=== PATIENT | male | born 1990 | race African-American/Black ===

== ENCOUNTER 2016-10-19 13:00 | Emergency (ER) | payer OTHER ==
[2016-10-19 13:51] LABS: ABSOLUTE EOSINOPHILS # (AUTO) 0.6 10^3/uL (0.0-0.6); ABSOLUTE LYMPHOCYTES (AUTO) 2.2 10^3/uL (0.5-4.7); ABSOLUTE NEUT (AUTO) 3.1 10^3/uL (1.7-8.2); BASOPHILS % (AUTO) 0.7 % (0-2); EOSINOPHILS % (AUTO) 8.7 % (0-6); HEMATOCRIT 42.1 % (37.9-51.0); HGB HCT DIFFERENCE -0.1; LYMPHOCYTES % (AUTO) 31.9 % (13-45); MEAN CORPUSCULAR HEMOGLOBIN 27.1 pg (27.0-33.4); MEAN CORPUSCULAR HGB CONC 33.4 g/dL (32.0-36.0); MEAN CORPUSCULAR VOLUME 81 fl (80-97); MONOCYTES % (AUTO) 14.4 % (3-13); RED BLOOD COUNT 5.18 10^6/uL (4.35-5.55); RED CELL DISTRIBUTION WIDTH 12.8 % (11.5-14.0); SEGMENTED NEUTROPHILS % (AUTO) 44.3 % (42-78)
[2016-10-19 14:09] LABS: ALANINE AMINOTRANSFERASE 42 U/L (21-72); ALBUMIN 4.9 g/dL (3.5-5.0); ALKALINE PHOSPHATASE 66 U/L (38-126); ANION GAP 14 (5-19); ASPARTATE AMINO TRANSFERASE 37 U/L (17-59); BILIRUBIN,DIRECT 0.2 mg/dL (0.0-0.4); BLOOD UREA NITROGEN 16 mg/dL (7-20); CALCIUM 10.1 mg/dL (8.4-10.2); CARBON DIOXIDE 25 mmol/L (22-30); CHLORIDE 104 mmol/L (98-107); CREATININE RESULT 1.15 mg/dL (0.52-1.25); GLUCOSE 90 mg/dL (75-110); POTASSIUM 4.4 mmol/L (3.6-5.0); SODIUM 142.6 mmol/L (137-145)
[2016-10-19 14:28] LABS: URINE BARBITURATES SCREEN NEGATIVE; URINE METHADONE SCREEN NEGATIVE; URINE OPIATES LOW NEGATIVE; URINE PHENCYCLIDINE SCREEN NEGATIVE
--- NOTE | 2016-10-19 15:12 | ER Document Report ---
ED General - General Chief Complaint: Psych Problem Stated Complaint: PSYCH EVAL Mode of Arrival: Ambulatory Information source: Patient Notes: 26-year-old male with past medical history of HIV currently not taking any medications secondary to noncompliance who presents today stating he has felt "excessively sleepy" over the last 2 weeks. Patient denies any headache, neck pain, nausea, vomiting, fevers, cough, congestion, chest pain, abdominal pain, flank pain, or dysuria. Patient states he does have pain to the top of his left foot that he's had for around 3 or 4 days without trauma. No pain to this foot region before. He denies any redness to the foot, calf pain or leg swelling. Patient states he drove himself here directly. Patient denies a history of any psychiatric disorders. Patient denies any and all HI/SI. Patient denies any history of suicidal ideations. TRAVEL OUTSIDE OF THE [place] IN LAST 30 DAYS: No - HPI Onset: Other Onset/Duration: Gradual - See above Quality of pain: Achy Severity: Mild Pain Level: 1 Associated symptoms: Other - See above Exacerbated by: Movement Relieved by: Denies Similar symptoms previously: No Recently seen / treated by doctor: No - Related Data Allergies/Adverse Reactions: No Known Allergies Allergy (Verified 10/19/16 13:02) Past Medical History - General Information source: Patient - Social History Smoking Status: Current Every Day Smoker Cigarette use (# per day): No Chew tobacco use (# tins/day): No Smoking Education Provided: No Frequency of alcohol use: None Drug Abuse: None Family History: Reviewed & Not Pertinent Patient has suicidal ideation: No Patient has homicidal ideation: No Endocrine Medical History: Denies: Hx Diabetes Mellitus Type 1, Hx Diabetes Mellitus Type 2 Renal/ Medical History: Denies: Hx Peritoneal Dialysis Surgical Hx: Negative - Immunizations Hx Diphtheria, Pertussis, Tetanus Vaccination: Yes Review of Systems - Review of Systems Constitutional: denies: Fever EENT: denies: Eye discharge, Nose discharge Cardiovascular: denies: Chest pain, Palpitations, Syncope, Dizziness, Lightheaded Respiratory: denies: Cough, Short of breath Gastrointestinal: denies: Diarrhea, Nausea, Vomiting Genitourinary: denies: Dysuria Musculoskeletal: denies: Leg swelling Skin: Other - no hives. denies: Rash Neurological/Psychological: Other - no slurred speech -: Yes All other systems reviewed and negative Physical Exam - Vital signs Vitals: Temp Pulse Resp BP Pulse Ox 98.5 F 95 18 153/99 H 100 10/19/16 13:04 10/19/16 13:04 10/19/16 13:04 10/19/16 13:04 10/19/16 13:04 Notes: Reviewed vital signs and nursing note as charted by RN. CONSTITUTIONAL: Patient was sleeping when and to the room. He was easily arousable. Patient is oriented to person, place, year, month, and location.. Well-appearing; well-nourished HEAD: Normocephalic; atraumatic EYES: PERRL ENT: Normal nose; no rhinorrhea; moist mucous membranes; pharynx without lesions noted NECK: Supple without meningismus; non-tender; no cervical lymphadenopathy, no masses CARD: Regular rate and rhythm; no murmurs, no clicks, no rubs, no gallops; symmetric distal pulses RESP: Normal chest excursion without splinting or tachypnea; breath sounds clear and equal bilaterally; no wheezes, no rhonchi, no rales ABD/GI: Normal bowel sounds; non-distended; soft, non-tender to deep palpation of all 4 quadrants of the abdomen BACK: The back appears normal and is non-tender to palpation, there is no CVA tenderness EXT: Normal ROM in all joints; he should has some mild tenderness without deformity, swelling, or erythema to the dorsal aspect of his left foot. Neurovascular intact distally. SKIN: Normal color for age and race; warm; dry; good turgor; capillary refill < 2 seconds; no acute lesions noted NEURO: CN II through XII are intact. Moves all extremities equally; Motor and sensory function intact PSYCH: No auditory visual hallucinations. Patient answers questions appropriately.. Course - Re-evaluation Re-evalutation: A psychiatry evaluation was ordered in triage secondary to his excessive sleepiness. Labs as recorded. Patient does admit to using cocaine. Patient has a cocaine positive urine drug screen. Labs otherwise unremarkable. Patient's white count with a differential does not appear to be concerning for an extremely low CD4 count. Patient has no history of a psychiatric evaluation here at this facility. Patient denies any SI, HI, auditory or visual hallucinations. He is oriented 4. I will x-ray the left foot. I've explained to the patient that psychostimulants such as cocaine when withdrawing from these substances, can cause excessive somnolence and sleepiness. 10/19/16 18:34 Patient has been evaluated by psychiatry who does not believe that the patient warrants any placement. Patient still has no focal logical deficits. Patient is still oriented 4. Patient agrees that stopping cocaine would be beneficial. Patient's thyroid levels are normal. Patient's alcohol level normal. Patient will be discharged home with strict return precautions. - Vital Signs Vital signs: Temp Pulse Resp BP Pulse Ox 98.5 F 95 18 153/99 H 100 10/19/16 13:04 10/19/16 13:04 10/19/16 13:04 10/19/16 13:04 10/19/16 13:04 - Laboratory Result Diagrams: 10/19/16 13:36 10/19/16 13:36 Laboratory results interpreted by me: 10/19/16 10/19/16 13:36 13:36 Monocytes % 14.4 H Eosinophils % 8.7 H Salicylates < 1.0 L Acetaminophen < 10 L Discharge - Discharge Clinical Impression: Cocaine abuse, Somnolence Condition: Stable Disposition: HOME, SELF-CARE Additional Instructions: Cocaine Abuse Cocaine causes many dangerous medical problems. Problems can occur even with "usual" amounts. Cocaine affects judgement, creating a sense of invulnerability. Cocaine users often make bad decisions that seem "great" at the time. Most cocaine users eventually will be hurt by bad job performance, damaged personal relations, crime, and unsafe sexual practices. Toxic effects of cocaine can include seizures, hallucinations, delusions, high blood pressure, heart damage, or sudden . There's always the risk of a "bad batch." But heart attacks, brain hemorrhages, or cardiac arrest can occur unpredictably even with "normal" use. Injection of cocaine is risky for abscesses, endocarditis (heart infection) , pneumonia, and AIDS. Withdrawal from cocaine often causes anxiety and drug cravings. Some users become paranoid and psychotic. Many treatment programs are available, but you must make the decision to quit. Medication can be prescribed to control the symptoms of cocaine toxicity (beta blockers or benzodiazepines). Withdrawal symptoms may require tranquilizers. Please follow up with you [facility] provider for a substance abuse evaluation and it is recommended you abstain from the use of illicit drugs. You have a scheduled appointment with the [facility] for 11/06/2016, please make every effort to attend this appointment. You are recommended to continue taking your medications as prescribed. If your symptoms worsen, please return to the emergency department. You may also contact [place] crisis at [phone] or [place] [facility] at . Addition resources for substance abuse treatment was provided by the Behavioral Health Team. Referrals: [facility] [Provider Group] - Follow up as needed
[2016-10-19 15:20] LABS: ADD ON TESTING BLD IN LAB ACKNOWLEDGE
[2016-10-19 15:52] LABS: ALCOHOL < 10 mg/dL (NONE DETECTED)
--- NOTE | 2016-10-19 16:19 | PSYCHOLOGICAL NOTE ---
Psych Note - Psych Note Psych Note: pt ambulatory to er with need for psych evaluation; he states "cant explain it. " Patient states he has not taken is medication his medication in 3 or 4 months; Clinician notes he states to [facility] staff he had been off his medication for 3 weeks. He continued to disclose that he is concerned that he is sleeping too much. He states he sleep on weekends, as soon as he gets home from work, and even at work. He continued to disclose concerns that he has missed work because of his sleeping. The patient states that he receives medical care from the [facility] and denies mental health services. He continued to state that feels like he is in a dream and not realizing what's going on. Patient presents as under the influence of cocaine as evidenced by positive toxicology results and disorganized thought processes, dilated pupils, psychomotor restlessness. Thought processes are not focused. Conversational speech is tangential. Patient denies suicidal and homicidal ideation. Patient denies auditory and visual hallucinations; no delusions are noted. Eye contact is poor. Attention and concentration are poor. insight, judgement and impulse control are poor. 292.89 (F15.129) Stimulant Intoxication; Cocaine, without perceptual disturbances, mild Impression\\plan: Patient is psychiatrically cleared for discharge. Patient denies suicidal and homicidal ideation. Patient does not meet IVC criteria per [place] GS 122C. Please follow up with you [facility] provider for a substance abuse evaluation and it is recommended you abstain from the use of illicit drugs. [facility] a [facility], please make every effort to attend this appointment. You are recommended to continue taking your medications as prescribed. If your symptoms worsen, please return to the emergency department. You may also contact [place] crisis at [phone] or [place] crisis at . Addition resources for substance abuse treatment was provided by the Behavioral Health Team. Dr. Rosenbaum was consulted on the care and management of this patient; attending physician is in agreement with recommendations and disposition.
--- NOTE | 2016-10-19 16:19 | ER Document Report ---
ED Psych Disorder / Suicide - General Time seen by provider: 14:30 Mode of Arrival: Ambulatory Information source: Patient Cannot obtain history due to: Other - Patient presents as under the influence of cocaine as evidenced by positive toxicology results and disorganized thought processes, dilated pupils, psychomotor restlessness. TRAVEL OUTSIDE OF THE [place] IN LAST 30 DAYS: No - HPI Patient complains to provider of: Other - Hypersomnia Onset: Other - "months and months" Onset was: Cannot confirm Pain Level: 3 Suicide Risk Factors: Male, No spouse, Substance abuse Normal mood: No - not focused Associated symptoms: Excessive sleeping, Psychomotor agitation, Tangential speech Similar symptoms previously: No Recently seen / treated by doctor: No <LISA AKHTAR - Last Filed: 10/19/16 16:19> <JOHN TOLBERT - Last Filed: 10/19/16 18:39> - General Chief Complaint: Psych Problem Stated Complaint: PSYCH EVAL - Related Data Allergies/Adverse Reactions: No Known Allergies Allergy (Verified 10/19/16 13:02) Past Medical History - Social History Smoking Status: Current Every Day Smoker Frequency of alcohol use: None Drug Abuse: Cocaine Lives with: Spouse/Significant other Family History: Reviewed & Not Pertinent Patient has suicidal ideation: No Patient has homicidal ideation: No Endocrine Medical History: Denies: Hx Diabetes Mellitus Type 1, Hx Diabetes Mellitus Type 2 Renal/ Medical History: Denies: Hx Peritoneal Dialysis Surgical Hx: Negative - Immunizations Hx Diphtheria, Pertussis, Tetanus Vaccination: Yes <LISA AKHTAR - Last Filed: 10/19/16 16:19> Physical Exam - Psychological Associated symptoms: Excessive sleeping, Psychomotor agitation, Tangential speech <LISA AKHTAR - Last Filed: 10/19/16 16:19> - Vital signs Interpretation: Normal <JOHN TOLBERT - Last Filed: 10/19/16 18:39> - Vital signs Vitals: Temp Pulse Resp BP Pulse Ox 98.5 F 95 18 153/99 H 100 10/19/16 13:04 10/19/16 13:04 10/19/16 13:04 10/19/16 13:04 10/19/16 13:04 Course - Laboratory Result Diagrams: 10/19/16 13:36 10/19/16 13:36 <LISA AKHTAR - Last Filed: 04/01/17 16:19> - Laboratory Result Diagrams: 10/19/16 13:36 10/19/16 13:36 <JOHN TOLBERT - Last Filed: 10/19/16 18:39> - Re-evaluation Re-evalutation: 10/19/16 18:39 (JOHN TOLBERT) - Vital Signs Vital signs: Temp Pulse Resp BP Pulse Ox 98.5 F 95 18 153/99 H 100 10/19/16 13:04 10/19/16 13:04 10/19/16 13:04 10/19/16 13:04 10/19/16 13:04 - Laboratory Laboratory results interpreted by me: 10/19/16 10/19/16 13:36 13:36 Monocytes % 14.4 H Eosinophils % 8.7 H Salicylates < 1.0 L Acetaminophen < 10 L Discharge <LISA AKHTAR - Last Filed: 10/19/16 16:19> <JOHN TOLBERT - Last Filed: 10/19/16 18:39> - Discharge Clinical Impression: Cocaine abuse, Somnolence Condition: Stable Disposition: HOME, SELF-CARE Additional Instructions: Cocaine Abuse Cocaine causes many dangerous medical problems. Problems can occur even with "usual" amounts. Cocaine affects judgement, creating a sense of invulnerability. Cocaine users often make bad decisions that seem "great" at the time. Most cocaine users eventually will be hurt by bad job performance, damaged personal relations, crime, and unsafe sexual practices. Toxic effects of cocaine can include seizures, hallucinations, delusions, high blood pressure, heart damage, or sudden . There's always the risk of a "bad batch." But heart attacks, brain hemorrhages, or cardiac arrest can occur unpredictably even with "normal" use. Injection of cocaine is risky for abscesses, endocarditis (heart infection) , pneumonia, and AIDS. Withdrawal from cocaine often causes anxiety and drug cravings. Some users become paranoid and psychotic. Many treatment programs are available, but you must make the decision to quit. Medication can be prescribed to control the symptoms of cocaine toxicity (beta blockers or benzodiazepines). Withdrawal symptoms may require tranquilizers. Please follow up with you [facility] provider for a substance abuse evaluation and it is recommended you abstain from the use of illicit drugs. You have a [facility] with the [facility] for [facility]2016, please make every effort to attend this appointment. You are recommended to continue taking your medications as prescribed. If your symptoms worsen, please return to the emergency department. You may also contact [place] crisis at [phone] or [place] crisis at . Addition resources for substance abuse treatment was provided by the Behavioral Health Team. Referrals: [facility] [Provider Group] - Follow up as needed
[2016-10-19 19:00] VITALS: BP 104/55
--- NOTE | 2016-10-20 00:11 | EKG REPORT ---
SEVERITY:- BORDERLINE ECG - SINUS RHYTHM BORDERLINE T ABNORMALITIES, ANT-LAT LEADS : Confirmed by: Harry Ashton 20-Oct-2016 00:11:03
== END 2016-10-19 19:00 | disposition home or self-care (01) ==
LOC: ER 13:00
DX: F14.10 Cocaine abuse, uncomplicated (principal); R40.0 Somnolence; M79.672 Pain in left foot; F17.200 Nicotine dependence, unspecified, uncomplicated; Z21 Asymptomatic human immunodeficiency virus [HIV] infection status; Z91.14 Patient's other noncompliance with medication regimen
CPT/HCPCS: 36415; 80053; 80307; 84443; 85025; 93005; 93010; 99284

== ENCOUNTER 2017-03-29 00:18 | Emergency (ER) | payer OTHER ==
[2017-03-29] MEDS ORDERED: LORAZEPAM INJ 2 MG/1 ML VIAL IV ONE (00:26)
[2017-03-29] MEDS ORDERED: NORMAL SALINE 1000 ML 1,000 ML IV PRN (00:27)
[2017-03-29 00:37] LABS: ABSOLUTE BASOPHILS # (AUTO) 0.1 10^3/uL (0.0-0.2); ABSOLUTE EOSINOPHILS # (AUTO) 0.4 10^3/uL (0.0-0.6); ABSOLUTE LYMPHOCYTES (AUTO) 4.3 10^3/uL (0.5-4.7); ABSOLUTE MONOCYTES (AUTO) 0.9 10^3/uL (0.1-1.4); ABSOLUTE NEUT (AUTO) 2.4 10^3/uL (1.7-8.2); EOSINOPHILS % (AUTO) 5.3 % (0-6); HEMATOCRIT 41.5 % (37.9-51.0); HEMOGLOBIN 13.5 g/dL (13.5-17.0); MEAN CORPUSCULAR HEMOGLOBIN 27.6 pg (27.0-33.4); MEAN CORPUSCULAR HGB CONC 32.5 g/dL (32.0-36.0); MEAN CORPUSCULAR VOLUME 85 fl (80-97); MONOCYTES % (AUTO) 11.1 % (3-13); RED BLOOD COUNT 4.89 10^6/uL (4.35-5.55); RED CELL DISTRIBUTION WIDTH 13.3 % (11.5-14.0); SEGMENTED NEUTROPHILS % (AUTO) 29.6 % (42-78); WHITE BLOOD COUNT 8.1 10^3/uL (4.0-10.5)
[2017-03-29 00:58] LABS: ALANINE AMINOTRANSFERASE 20 U/L (21-72); ALBUMIN 4.7 g/dL (3.5-5.0); ALKALINE PHOSPHATASE 59 U/L (38-126); ASPARTATE AMINO TRANSFERASE 24 U/L (17-59); BILIRUBIN,DIRECT 0.3 mg/dL (0.0-0.4); BILIRUBIN,TOTAL 0.4 mg/dL (0.2-1.3); BLOOD UREA NITROGEN 12 mg/dL (7-20); CALCIUM 9.6 mg/dL (8.4-10.2); CHLORIDE 102 mmol/L (98-107); CREATININE RESULT 1.48 mg/dL (0.52-1.25); GLUCOSE 154 mg/dL (75-110); POTASSIUM 3.8 mmol/L (3.6-5.0); TOTAL PROTEIN 8.1 g/dL (6.3-8.2)
[2017-03-29] MEDS ORDERED: ZIPRASIDONE MESYLATE INJ/PF 20 MG SDV IM ONE (01:05)
[2017-03-29 01:06] LABS: ALCOHOL < 10 mg/dL (NONE DETECTED)
[2017-03-29] MEDS ORDERED: LORAZEPAM INJ 2 MG/1 ML VIAL ONE (01:06)
[2017-03-29 01:13] LABS: CARBON DIOXIDE 16 mmol/L (22-30); SODIUM 141.7 mmol/L (137-145)
[2017-03-29 01:14] LABS: ANION GAP 24 (5-19)
[2017-03-29] MEDS ORDERED: LORAZEPAM INJ 2 MG/1 ML VIAL IM ONE (02:05)
--- NOTE | 2017-03-29 02:48 | ER Document Report ---
ED General - General Chief Complaint: Altered Mental Status Stated Complaint: UNRESPONSIVE Time Seen by Provider: 03/29/17 00:25 Notes: Patient is a 26-year-old male who is brought in by ambulance after being confused. Patient apparently went someone's hotel room and start flopping around on the floor. Paramedics arrived he was poorly responsive but then started to wake and was agitated. History is not very obtainable as the patient appears to be under the influence of some drug and is not making less sense when he talks. When I was in the room with another patient apparently family arrived and told the nurses that the patient has a history of HIV and does not take medications. He also has a history of cocaine and drug abuse. No further history is obtainable at this time. TRAVEL OUTSIDE OF THE [place] IN LAST 30 DAYS: No - Related Data Allergies/Adverse Reactions: No Known Allergies Allergy (Verified 10/19/16 13:02) Past Medical History - Social History Smoking Status: Unknown if Ever Smoked Frequency of alcohol use: unknown Drug Abuse: Cocaine Family History: Reviewed & Not Pertinent Endocrine Medical History: Denies: Hx Diabetes Mellitus Type 1, Hx Diabetes Mellitus Type 2 Renal/ Medical History: Denies: Hx Peritoneal Dialysis - Immunizations Hx Diphtheria, Pertussis, Tetanus Vaccination: Yes Review of Systems - Review of Systems -: Yes ROS unobtainable due to patient's medical condition - Patient has altered mental status. Physical Exam - Vital signs Vitals: Pulse Ox 96 03/29/17 00:20 - Notes Notes: General Appearance: Well nourished, patient will not stay still in the bed. His eyes are open. He is faliling about opening his mouth or sticking out his tongue., He is awake and alert but obviously confused. Vitals: reviewed, See vital signs table. Head: no swelling or tenderness to the head Eyes: PERRL, EOMI, Conjuctiva clear Mouth: No decreasd moisturehroat: No tonsillar inflammation, No airway obstruction, No lymphadenopathy Lungs: No wheezing, No rales, No rhonci, No accessory muscle use, good air exchange bilaterally. Heart: Normal rate, Regular rythm, No murmur, no rub Abdomen: Normal BS, soft, No rigidity, No abdominal tenderness, No guarding, no rebound, no abdominal masses, no organomegaly Extremities: strength 5/5 in all extremities, good pulses in all extremities, no swelling or tenderness in the extremities, no edema. Skin: warm, dry, appropriate color, no rash Neuro: Patient will occasionally come down enough to talk to me a little bit but when he does talk he blames a nurse for "putting something in my IV". He says that the nurse is the reason why he is acting the way he is. I informed him that the nurse only flushes IV was saline and that he was acting this way well before the nurse ever saw him. Patient moves all extremities very well. He is strong and somewhat combative at times. Course - Re-evaluation Re-evalutation: 03/29/17 06:38 Shortly after arrived the patient was becoming more agitated the patient was trying to leave. I was at that time taking care of a patient who had a open fracture in the foot. The physician was here and therefore recommend the patient receive Geodon. Patient did receive 20 mg of Geodon. Since and the patient has been sleeping resting comfortably. Patient's initial presentation is very consistent with that of intoxication with cocaine or possibly a synthetic drug such as bath salts or flakka. Patient does have a history of HIV and does not take his medications according to report from family; however, I do not suspect that this is infectious induced pain at the patient has no fevers, no leukocytosis, and the fact that his presentation initially is very consistent with intoxication from drugs. Patient will be reassessed by the morning physician when the Geodon wears off and he is awake alert and acting more appropriately. The patient is acting appropriately and feeling improved and has no further concerns and he will be discharged at that time with resources for drug rehabilitation. Dictation of this chart was performed using voice recognition software; therefore, there may be some unintended grammatical errors. 03/29/17 08:03 Stable my evaluation the patient for leaving. Patient is now starting to wake up much more. Is able to mumble answers to a few questions but is still too somnolent to leave at this time. Patient will be reassessed by Dr. Penaloza later. - Vital Signs Vital signs: Temp Pulse Resp BP Pulse Ox 83 12 90/63 L 99 03/29/17 03:51 03/29/17 07:01 03/29/17 07:01 03/29/17 07:01 - Laboratory Result Diagrams: 03/29/17 00:19 03/29/17 00:19 Laboratory results interpreted by me: 03/29/17 03/29/17 03/29/17 00:19 00:19 03:31 Seg Neutrophils % 29.6 L Lymphocytes % 53.0 H Carbon Dioxide 16 L Anion Gap 24 H Creatinine 1.48 H Est GFR (Non-Af Amer) 58 L Glucose 154 H ALT 20 L Urine Protein 100 H Urine Ascorbic Acid 40 H Salicylates < 1.0 L Acetaminophen < 10 L - EKG Interpretation by Me Additional EKG results interpreted by me: 03/29/17 04:12 EKG is reviewed and interpreted by me. EKG shows normal sinus rhythm with rate of [address] segment elevation or depression. No ischemic T-wave inversions. OH interval, QRS duration, QTc intervals are within normal range. Old EKG for comparison is from October 19, 2016. Discharge - Discharge Clinical Impression: Substance abuse Additional Instructions: Please take your HIV medications. Please stop abusing drugs. Your drug screen showed cocaine. Continued use of this will lead to your . Return to the ER immediately if you have fevers, or feel unwell. Please follow-up with drug rehabilitation. Please stay away from cocaine or any other illegal drugs. Please return to the ER if you have any concerns whatsoever.
--- NOTE | 2017-03-29 03:42 | RADIOLOGY REPORT (SQ) ---
EXAM DESCRIPTION: CT HEAD WITHOUT COMPLETED DATE/TIME: 03/29/2017 3:22 am REASON FOR STUDY: altered mental status COMPARISON: None. TECHNIQUE: Axial images acquired through the brain without intravenous contrast. Images reviewed wi th bone, brain and subdural windows. Images stored on PACS. All CT scanners at this facility use dose modulation, iterative reconstruction, and/or weight based d osing when appropriate to reduce radiation dose to as low as reasonably achievable (ALARA). [facility]: Dose Right [facility]: CareDose [facility]: Dose Right [facility]: Teradose 4D [facility]: Smart Technologies RADIATION DOSE: Up-to-date CT equipment and radiation dose reduction techniques were employed. CTDIv ol: 64.6 mGy. DLP: 1163 mGy-cm. mGy. LIMITATIONS: None. FINDINGS: VENTRICLES: Normal size and contour. CEREBRUM: No mass effect. No hemorrhage. No midline shift. Normal cordova/white matter differentiatio n. No evidence for acute territorial infarction. CEREBELLUM: No mass effect. No hemorrhage. No alteration of density. No evidence for acute infarct ion. EXTRAAXIAL SPACES: No fluid collections. ORBITS AND GLOBE: Symmetrical contour of the globes. CALVARIUM: No depressed skull fracture. PARANASAL SINUSES: No air-fluid level. SOFT TISSUES: No hematoma. IMPRESSION: No acute intracranial hemorrhage or acute territorial infarct. COMMENT: Quality ID # [id number]: Final reports with documentation of one or more dose reduction techniques (e.g., Automated exposure control, adjustment of the mA and/or kV according to patient size, use of iterative reconstruction technique) TECHNICAL DOCUMENTATION: JOB ID: [id number] 2010 [employer]- All Rights Reserved
[2017-03-29 03:49] LABS: AMORPHOUS SEDIMENT,URINE TRACE /HPF; APPEARANCE,URINE CLOUDY; BILIRUBIN,URINE NEGATIVE (NEGATIVE); GLUCOSE, URINE NEGATIVE (NEGATIVE); KETONES,URINE NEGATIVE (NEGATIVE); LEUKOCYTE ESTERASE,URINE NEGATIVE (NEGATIVE); NITRITE,URINE NEGATIVE (NEGATIVE); PROTEIN,URINE 100 mg/dL (NEGATIVE); URINE SPECIFIC GRAVITY 1.026; UROBILINOGEN,URINE NEGATIVE mg/dL (<2.0)
[2017-03-29 04:05] LABS: URINE BARBITURATES SCREEN NEGATIVE; URINE METHADONE SCREEN NEGATIVE; URINE OPIATES LOW NEGATIVE; URINE PHENCYCLIDINE SCREEN NEGATIVE
[2017-03-29] MEDS ORDERED: AMMONIA INHALANTS 10 AMPUL/BOX IH ONE (04:35)
--- NOTE | 2017-03-29 06:51 | EKG REPORT ---
SEVERITY:- ABNORMAL ECG - SINUS RHYTHM INCOMPLETE RIGHT BUNDLE BRANCH BLOCK NEW COVING ST ELEVATION IN ANTERIOR PRECORDIAL LEADS V3-V6 IS ABNORMAL, CLINICAL CORRELATION , SERIAL EKG AND TROP. I NEEDED TO DETERMINE SIGNIFICANCE. : Confirmed by: Oscar Sosa MD 29-Mar-2017 06:51:06
[2017-03-29 11:52] VITALS: BP 91/56
== END 2017-03-29 11:51 | disposition home or self-care (01) ==
LOC: ER 00:18
DX: R41.82 Altered mental status, unspecified (principal); F19.10 Other psychoactive substance abuse, uncomplicated; Z21 Asymptomatic human immunodeficiency virus [HIV] infection status
CPT/HCPCS: 93005; 99285; 96372; 51701; 96374; 36415; 80307 ×4; 85025; 80053; 81001; 70450; 93010; J2060; J3486; J7030

== ENCOUNTER 2017-04-18 21:45 | Emergency (ER) | payer OTHER ==
--- NOTE | 2017-04-18 23:36 | RADIOLOGY REPORT (SQ) ---
EXAM DESCRIPTION: FOREARM LEFT COMPLETED DATE/TIME: 04/18/2017 11:17 pm REASON FOR STUDY: LAC COMPARISON: None. NUMBER OF VIEWS: Two views. TECHNIQUE: Two radiographic images acquired of the left forearm, including elbow and wrist in at [address]ia st one projection. LIMITATIONS: None. FINDINGS: MINERALIZATION: Normal. BONES: No acute fracture. No worrisome bone lesions. SOFT TISSUES: No obvious swelling or foreign body. OTHER: No other significant finding. IMPRESSION: NEGATIVE STUDY OF THE LEFT FOREARM. NO RADIOGRAPHIC EVIDENCE OF ACUTE INJURY. TECHNICAL DOCUMENTATION: JOB ID: [id number] [employer]- All Rights Reserved
[2017-04-19] MEDS ORDERED: DIPH/PERTUSS(ACELL)/TETANUS VAC/PF 0.5 ML SYR (>=10YO) IM ONE (00:22)
[2017-04-19] MEDS ORDERED: LIDOCAINE 1% INJ (10 MG/ML) 10 ML MDV INJ ONE (00:22)
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
[2017-04-19] MEDS ORDERED: LIDOCAINE 1% INJ-PF (10 MG/ML) 30 ML SDV ONE (01:02)
[2017-04-19 01:54] VITALS: BP 114/69
== END 2017-04-19 02:00 | disposition home or self-care (01) ==
LOC: ER 21:45
PROC: 0HQEXZZ Repair Left Lower Arm Skin, External Approach (ICD-10-PCS; principal; 2017-04-18)
DX: S51.812A Laceration without foreign body of left forearm, initial encounter (principal); Y04.0XXA Assault by unarmed brawl or fight, initial encounter; F14.10 Cocaine abuse, uncomplicated; F17.200 Nicotine dependence, unspecified, uncomplicated; R00.0 Tachycardia, unspecified; Z23 Encounter for immunization
CPT/HCPCS: 90471; 90715; 99284

== ENCOUNTER 2017-04-29 20:19 | Emergency (ER) | payer OTHER ==
[2017-04-29] MEDS ORDERED: IPRATROPIUM/ALBUTEROL 0.5-2.5 MG/3 ML AMPUL NEB ONE (21:56)
[2017-04-29] MEDS ORDERED: ACETAMINOPHEN 325 MG TABLET PO ONE (21:57)
--- NOTE | 2017-04-29 22:01 | ER Document Report ---
HPI - HPI Pain Level: Denies Notes: Patient with a history of HIV comes to the ED for suture removal for 4 sutures that were placed in the left distal posterior forearm about 11 days ago. Patient states that he also began having a fever today and has been coughing with chest congestion over the last 4 days. He has not been taking any over-the -counter meds for symptoms. He still eating and drinking without any difficulties. Patient has not noticed any abscess or purulent discharge from the laceration site. Denies any drug allergies or other significant past medical history. Patient admits to smoking. Denies any headache, head injury, neck pain, URI, sore throat, chest pain, palpitations, syncope, shortness of breath, dyspnea, abdominal pain, nausea/vomiting/diarrhea, urinary retention, dysuria, hematuria, loss of control of bowel or bladder, numbness/tingling, muscle paralysis/weakness, or rash. - ROS Notes: REVIEW OF SYSTEMS: CONSTITUTIONAL : see hpi EENT: Denies eye, ear, throat, or mouth pain or symptoms. Denies nasal or sinus congestion or discharge. Denies throat, tongue, or mouth swelling or difficulty swallowing. CARDIOVASCULAR: Denies chest pain. Denies palpitations or racing or irregular heart beat. Denies ankle edema. RESPIRATORY: see hpi GASTROINTESTINAL: Denies abdominal pain or distention. Denies nausea, vomiting , or diarrhea. Denies blood in vomitus, stools, or per rectum. Denies black, tarry stools. Denies constipation. GENITOURINARY: Denies difficulty urinating, painful urination, burning, frequency, blood in urine, or discharge. MUSCULOSKELETAL: Denies back or neck pain or stiffness. Denies joint pain or swelling. SKIN: see hpi NEUROLOGICAL: Denies confusion or altered mental status. Denies passing out or loss of consciousness. Denies dizziness or lightheadedness. Denies headache. Denies weakness or paralysis or loss of use of either side. Denies problems with gait or speech. Denies sensory loss, numbness, or tingling. Denies seizures. PSYCHIATRIC: Denies anxiety or stress. Denies depression, suicidal ideation, or homicidal ideation. ALL OTHER SYSTEMS REVIEWED AND NEGATIVE. Dictation was performed using [employer] voice recognition software - DERM Skin Color: Normal Past Medical History - Social History Smoking Status: Current Every Day Smoker Family History: Reviewed & Not Pertinent Patient has suicidal ideation: No Patient has homicidal ideation: No Endocrine Medical History: Denies: Hx Diabetes Mellitus Type 1, Hx Diabetes Mellitus Type 2 Renal/ Medical History: Denies: Hx Peritoneal Dialysis Psychiatric Medical History: Reports: Hx Depression - Immunizations Hx Diphtheria, Pertussis, Tetanus Vaccination: Yes Vertical Provider Document - CONSTITUTIONAL Agree With Documented VS: Yes Notes: PHYSICAL EXAMINATION: GENERAL: Well-appearing, well-nourished and in no acute distress. A&Ox4 HEAD: Atraumatic, normocephalic. EYES: Pupils equal round and reactive to light, extraocular movements intact, sclera anicteric, conjunctiva are normal. ENT: EAC clear b/l. TM's intact b/l without erythema, fluid, or perforation. Nares patent and without discharge. oropharynx clear without exudates. No tonsilar hypertrophy or erythema. Moist mucous membranes. No sinus tenderness. NECK: Normal range of motion, supple without lymphadenopathy. No rigidity/ meningismus. LUNGS: Wheezes b/l on insp/expiration. HEART: Regular rate and rhythm without murmurs, rubs, gallops. Musculoskeletal: FROM to passive/active. Strength 5+/5. Extremities: No cyanosis, clubbing, or edema b/l. Peripheral pulses 2+. Capillary refill less than 3 seconds. NEUROLOGICAL: Cranial nerves grossly intact. Normal speech, normal gait. Normal sensory, motor exams PSYCH: Normal mood, normal affect. SKIN: healed laceration to left posterior distal forearm. Suture to be removed. - INFECTION CONTROL TRAVEL OUTSIDE OF THE [place] IN LAST 30 DAYS: No - RESPIRATORY O2 Sat by Pulse Oximetry: 100 Course - Re-evaluation Re-evalutation: 04/29/17 22:55 Pt is a well-hydrated, 26yo male with HIV who presents with a fever, cough, and for suture removal. Vitals are otherwise stable. Sutures removed successfully w/o complication of signs of infection. CXR unremarkable. Duoneb given which did improve patient's breathing and breath sounds. Low suspicion for any ACS, PE, Pneumothorax, dissection, pericarditis, sepsis, meningitis, respiratory compromise. Pt is aware that his condition can change from initial presentation and he needs to monitor sx's closely and seek medical attention with any acute changes. Decadron given IM today. I will send him home with a Rx for zithromax and an inhaler. Conservative measures for symptoms. Recheck with your PCM in 2-3 days. Return to the ED with any worsening/concerning symptoms otherwise as reviewed in discharge. Pt is in agreement. - Vital Signs Vital signs: Temp Pulse Resp BP Pulse Ox 101.0 F H 100 18 120/70 100 04/29/17 20:45 04/29/17 20:45 04/29/17 20:45 04/29/17 20:45 04/29/17 20:45 Discharge - Discharge Clinical Impression: Cough, Visit for suture removal Fever Qualifiers: Fever type: unspecified Qualified Code(s): R50.9 - Fever, unspecified Condition: Stable Disposition: HOME, SELF-CARE Instructions: Bronchitis With Bronchospasm (Wheezing) ([facility]), Fever ([facility]), Inhaled Bronchodilators ([facility]) Additional Instructions: Maintain adequate fluid intake Take meds as directed Use inhaler as directed tylenol/ibuprofen as needed over the counter cold medication as needed for symptoms Humidified air may help F/u: with your PCM in 2-3 days for a recheck Return to the ED with any fever, worsening pain, chest pain, palpitations, syncope, worsening HAAS, neck pain/stiffness, shortness of breath, wheezing, drooling, trouble swallowing/breathing, abdominal pain, n/v/d, rash, or worsening/concerning symptoms otherwise. Prescriptions: Albuterol Sulfate [Proair HFA Inhalation Aerosol 8.5 gm MDI] 1 - 2 puff IH Q4H PRN #1 mdi PRN Reason: Azithromycin [Zithromax 250 mg Tablet] 250 mg PO ASDIR PRN #6 tablet PRN Reason: Referrals: SUNIL CENTENO MD [Primary Care Provider] - Follow up as needed
--- NOTE | 2017-04-29 22:24 | RADIOLOGY REPORT (SQ) ---
EXAM DESCRIPTION: CHEST PA/LAT COMPLETED DATE/TIME: 04/29/2017 10:10 pm REASON FOR STUDY: cough and fever COMPARISON: None. EXAM PARAMETERS: NUMBER OF VIEWS: two views TECHNIQUE: Digital Frontal and Lateral radiographic views of the chest acquired. RADIATION DOSE: NA LIMITATIONS: none FINDINGS: LUNGS AND PLEURA: No opacities, masses or pneumothorax. No pleural effusion. MEDIASTINUM AND HILAR STRUCTURES: No masses or contour abnormalities. HEART AND VASCULAR STRUCTURES: Heart normal size. No evidence for failure. BONES: No acute findings. HARDWARE: None in the chest. OTHER: No other significant finding. IMPRESSION: NO SIGNIFICANT RADIOGRAPHIC FINDING IN THE CHEST. TECHNICAL DOCUMENTATION: JOB ID: [id number] [employer]- All Rights Reserved
[2017-04-29] MEDS ORDERED: DEXAMETHASONE SOD PHOS INJ 10 MG/1 ML VIAL IM ONE (22:28)
[2017-04-29 23:04] VITALS: BP 135/75
== END 2017-04-29 23:04 | disposition home or self-care (01) ==
LOC: ER 20:19
DX: Z48.02 Encounter for removal of sutures (principal); R50.9 Fever, unspecified; R05 Cough; F17.200 Nicotine dependence, unspecified, uncomplicated; Z21 Asymptomatic human immunodeficiency virus [HIV] infection status
CPT/HCPCS: 94640; 99283; 71020; J7620